=== PATIENT | female | born 1985 | race Caucasian/White ===

== ENCOUNTER 2020-07-11 14:46 | Emergency (ER) | payer OTHER, SELFPAY ==
[2020-07-11 15:02] VITALS: BP 149/85; PULSE 102; RESP 20; TEMP 37; O2SAT 100
--- NOTE | 2020-07-11 15:12 | ED.URI ---
HPI - URI/Sore Throat General Chief Complaint: Upper Respiratory Infection Stated Complaint: upper respiratory infection Time Seen by Provider: 07/11/20 14:53 Source: patient Mode of arrival: ambulatory Limitations: no limitations History of Present Illness HPI Narrative: 34-year-old female presents to [facility] with complaints of sinus congestion, runny nose, bilateral ear pressure, scratchy throat, chills, decreased appetite and fatigue for the past 2 to 3 days. Patient reports that her son recently had similar symptoms and tested negative for Covid 2 days ago. Patient has been taking [id number] DayQuil with minimal relief. Patient denies fever, chills, shortness of breath, wheezing, nausea, vomiting or diarrhea. Patient is a non-smoker. Patient denies recent travel. MD elicited complaint: cough, rhinorrhea, nasal congestion and sinus pain Onset (ago): day(s) (3) Able to tolerate fluids by mouth: Yes Exacerbating factors: nothing Relieving factors: nothing Context: sick contacts (son) Treatments prior to arrival: cold medicine Related Data Home Medications Medication Instructions Recorded Confirmed norethindrone-e.estradiol-iron 1 tablet DAILY 07/11/20 07/11/20 [Aurovela Fe 1-20 (28)] Allergies Allergy/AdvReac Type Severity Reaction Status Date / Time No Known Allergies Allergy Verified 07/11/20 15:08 Review of Systems Constitutional: Constitutional: Denies chills, Reports fatigue and Denies fever(s) ENT: Denies dysphagia, Denies dizziness, Reports nasal congestion and Reports sore throat Respiratory: Respiratory: Denies chest congestion, Reports cough, Denies dyspnea and Denies wheezing Gastrointestinal: Gastrointestinal: Denies abdominal pain, Denies constipation, Denies diarrhea and Denies vomiting Integumentary/Breasts: Skin/Breast: Denies rash Neurologic: Denies vertigo, Denies dizziness, Denies syncope and Denies focal weakness PMFSH Social History Social History (Updated 07/11/20 @ 15:14 by Leticia Sosa APRN) Smoking status: Never smoker Gender identity (if verbalized by the patient): Female Comments At time of signature, I agree with nursing past medical, surgical, social and family history. There is no relevant family history pertinent to the presenting complaint. Exam Const: General: healthy appearing and no acute distress Orientation/consciousness: patient oriented x3 HENMT: Ears: external ears normal and TM's normal bilaterally Face and sinus: normal facial exam and sinus tenderness (mild) frontal Mouth: Yes moist mucous membranes Throat: posterior oropharynx normal and uvula midline Other: mild nasal congestion noted. Neck: Neck: normal visual inspection and no lymphadenopathy Resp: Effort & Inspection: normal respiratory effort Auscultation: clear to auscultation bilaterally Cardio: Rate: regular rate Rhythm: regular rhythm and regular rhythm Skin: General skin exam: normal color Rashes: no rashes Wounds: no wounds Neuro: General: patient oriented x3, moves all extremities and no meningeal signs Psych: Appearance: grossly normal Mental Status: mental status grossly normal Affect: normal affect Attitude: cooperative Thought content: Yes Normal thought content present Course Vital Signs Vital signs: Vital Signs Temperature 37.0 C 07/11/20 15:02 Pulse Rate 102 H 07/11/20 15:02 Respiratory Rate 07/11/20 15:02 Blood Pressure 149/85 H 07/11/20 15:02 Pulse Oximetry 100 07/11/20 15:02 Temperature 37.0 C 07/11/20 15:02 Pulse Rate 102 H 07/11/20 15:02 Respiratory Rate 07/11/20 15:02 Blood Pressure 149/85 H 07/11/20 15:02 Pulse Oximetry 100 07/11/20 15:02 MDM - URI/Sore Throat MDM Narrative Medical decision making narrative: Patient agrees take medications as prescribed. Patient agrees to Covid test. Patient understands that [facility] will call her for an appointment date and time for Covid test sheila
== END 2020-07-11 15:25 | disposition home or self-care (01) ==
PROVIDERS: Emergency Provider Nurse Practitioner Family
DX: J06.9 Acute upper respiratory infection, unspecified (principal); Z20.828 Contact with and (suspected) exposure to other viral communicable diseases
CPT/HCPCS: 87081; 87880; 99203; G0463

== ENCOUNTER 2020-07-13 06:50 | Outpatient (NON) | payer OTHER, SELFPAY ==
[2020-07-14 01:03] LABS: SARS-CoV-2 RNA PCR Negative
== END 2020-07-13 06:51 ==
LOC: ANHCOVIDDT 06:50
PROVIDERS: Visit Provider Nurse Practitioner Family
DX: Z20.828 Contact with and (suspected) exposure to other viral communicable diseases (principal); R09.81 Nasal congestion; R05 Cough; J02.9 Acute pharyngitis, unspecified
CPT/HCPCS: 87635; C9803; U0003

== ENCOUNTER 2020-07-14 14:04 | Emergency (ER) | payer OTHER, SELFPAY ==
[2020-07-14 14:14] VITALS: BP 132/85; PULSE 71; RESP 20; TEMP 36.8; O2SAT 100
--- NOTE | 2020-07-14 14:25 | ED.URI ---
HPI - URI/Sore Throat General Chief Complaint: Upper Respiratory Infection Stated Complaint: upper respiratory infection Time Seen by Provider: 07/14/20 14:25 Source: patient Mode of arrival: ambulatory Limitations: no limitations History of Present Illness HPI Narrative: 34 year old female who presents to [facility] care with complaints of having sinus drainage,sore throat, pressure and pain to face and forehead, ear pressure and popping, fevers, chills with no energy since Thursday. Patient was seen in the clinic on the 11 of July and strep test was negative, has been taking Medrol dose pack Claritin and DayQuil for her symptoms with no improvement noted. Patient also had COVID testing which was negative. Patient states that she had 12 hours of freezing and sweating with no energy, and nausea on Thursday night but she didn't check her temperature then, had been having fevers up to 100.5F on Thursday and Thursday. MD elicited complaint: fever, sore throat, rhinorrhea, nasal congestion and sinus pain Pertinent past history: seasonal allergies Onset (ago): day(s) (7 days) Consistency: progressively worsening Severity: moderate Pain scale (0-10): 5 Description of mucous: clear and yellow Able to tolerate fluids by mouth: Yes Exacerbating factors: exertion and changing head position Relieving factors: nothing Associated symptoms: fever, chills and rhinorrhea Related Data Home Medications Medication Instructions Recorded Confirmed norethindrone-e.estradiol-iron 1 tablet DAILY 07/11/20 07/14/20 [Aurovela Fe 1-20 (28)] Allergies Allergy/AdvReac Type Severity Reaction Status Date / Time No Known Allergies Allergy Verified 07/11/20 15:08 Review of Systems Review of Systems: Narrative: CONSTITUTIONAL: Intermittent fever, chills, or sweats. EYES: Denies visual changes, redness, or discharge. ENT: Positive rhinorrhea, nasal congestion,sinus pressure. sore throat, and otalgia. CARDIOVASCULAR: Denies chest pain, palpitations, or edema. RESPIRATORY: Denies acute cough or dyspnea. GASTROINTESTINAL: Denies abdominal pain, one episode of nausea, no vomiting, or diarrhea. GENITOURINARY: Denies dysuria or hematuria. SKIN: Denies rash or itching. MUSCULOSKELETAL: Denies back pain, joint pain, or myalgia. NEUROLOGIC: positive headache and facial pressure denies numbness, or weakness. PSYCHIATRIC: Denies anxiety or depression. All systems reviewed & are unremarkable except as noted in HPI and below PMFSH Social History Social History (Updated 07/14/20 @ 15:20 by Vonda Bradshaw NP) Smoking status: Never smoker Alcohol intake: current Alcohol use details: rare social Substance use: never Living arrangements: with family Gender identity (if verbalized by the patient): Female Comments At time of signature, agree with nursing past medical, surgical, social history. There is no relevant family history pertinent to the presenting complaint Exam Narrative: Exam Narrative: GENERAL:Ill-appearing, well-nourished, and in no acute distress. HEAD: Normocephalic, atraumatic. EYES: PERRLA and EOMI. ENT: Nares with red turbinates, clear to light yellow rhinorrhea no epistaxis. Mucous membranes moist.TM's normal with dull light reflex, throat red with no lesions or exudates, no tonsil enlargement NECK: Supple.mild bilateral lymphadenopathy CHEST: Clear to auscultation. No respiratory distress.SAO2 100% on room air HEART: Regular rate and rhythm. No murmur heard. Normal peripheral pulses. ABDOMEN: Soft, nontender, nondistended, normal active bowel sounds. EXTREMITIES: Normal range of motion. No edema. SKIN: Warm, dry, no rash. NEURO: No focal deficits. Alert and oriented x3. headache discomfort with general fatigue. Course Vital Signs Vital signs: Vital Signs Temperature 36.8 C 07/14/20 14:14 Pulse Rate 71 07/14/20 14:14 Respiratory Rate 20 07/14/20 14:14 Blood Pressure 132/85 07/14/20 14:14 Pulse Oximetry 100
== END 2020-07-14 14:48 | disposition home or self-care (01) ==
PROVIDERS: Emergency Provider Registered Nurse
DX: J01.90 Acute sinusitis, unspecified (principal)
CPT/HCPCS: 99213; G0463

== ENCOUNTER 2021-05-16 11:06 | Emergency (ER) | payer OTHER, SELFPAY ==
--- NOTE | 2021-05-16 11:14 | ED.URI ---
HPI - URI/Sore Throat General Chief Complaint: Upper Respiratory Infection Stated Complaint: Congestion,Cough, Runny Nose Time Seen by Provider: 05/16/21 11:15 Source: patient Mode of arrival: ambulatory Limitations: no limitations History of Present Illness HPI Narrative: 35-year-old female presents to the [facility] with complaints of nasal congestion, sinus pressure, ear pain bilaterally, cough, runny nose and watery eyes. Symptoms started approximately 9 days ago when she received her Covid vaccine. states that on Thursday she had subjective fever. Denies any medical or surgical history. Has been taking DayQuil and NyQuil. Reports son was sick had a negative Covid test on Thursday, seen in the ER, diagnosed with a bilateral ear infection MD elicited complaint: cough, rhinorrhea, nasal congestion and sinus pain Pertinent past history: sinusitis Related Data Home Medications Medication Instructions Recorded Confirmed norethindrone-e.estradiol-iron 1 tablet DAILY 07/11/20 05/16/21 [Aurovela Fe 1-20 (28)] Allergies Allergy/AdvReac Type Severity Reaction Status Date / Time No Known Allergies Allergy Verified 05/16/21 11:13 Review of Systems Review of Systems: All systems reviewed & are unremarkable except as noted in HPI and below Constitutional: Constitutional: Reports as per HPI and Reports fever(s) (Thursday, 6 days ago) Eyes: Eyes: Reports no additional eye complaints, Denies change in vision and Denies photophobia ENT: Reports as per HPI, Denies vertigo, Denies dizziness and Reports nasal congestion Comments: Bilateral ear pressure, pain. Rhinorrhea Cardiovascular: Cardiovascular: Reports no additional cardiovascular complaints and Denies chest pain Respiratory: Respiratory: Reports as per HPI, Reports cough, Denies dyspnea and Denies wheezing Gastrointestinal: Gastrointestinal: Reports no additional gastrointestinal complaints, Denies abdominal pain, Denies nausea and Denies vomiting Genitourinary: Genitourinary: Reports no additional female genitourinary complaints Musculoskeletal: Musculoskeletal: Reports no additional musculoskeletal complaints Integumentary/Breasts: Skin/Breast: Reports system reviewed and no additional complaints, except as docu Neurologic: Reports system reviewed and no additional complaints, except as documented Psychiatric: Psychiatric: Reports no additional psychiatric complaints Allergic/Immunologic: Allergic/Immunologic: Reports no additional allergic/immunologic complaints PMFSH Past Medical History Medical History (Updated 09/16/21 @ 12:44 by Mora Aguiar) No significant medical problems Surgical History Surgical History (Updated 05/16/21 @ 12:44 by Mora Aguiar) No significant past surgical history Social History Social History (Updated 05/16/21 @ 12:44 by Mora Aguiar) Smoking status: Never smoker Alcohol intake: current Alcohol use details: rare social Substance use: never Living arrangements: with family Gender identity (if verbalized by the patient): Female Comments At the time of my signature, I reviewed and agree with the nursing past medical, surgical, social, and family history. There is no relevant family history pertinent to the patient complaint. Exam Const: General: healthy appearing, no acute distress and alert Nutritional Appearance: well nourished Orientation/consciousness: patient oriented x3 Limitations: no limitations HENMT: Head: normal to inspection and atraumatic Ears: external ears normal and EAC's normal General nose exam: Normal external nose present, Abnormal mucous membranes and turbinates present boggy bilateral and erythematous bilateral and Nasal discharge present clear Face and sinus: normal facial exam, face symmetric, no ecchymosis and sinus tenderness frontal and maxillary Mouth: Yes Normal oral and palatal mucosa present Throat: tonsils normal, uvula midline, postnasal drainage and no uvular edema
[2021-05-16 11:15] VITALS: BP 135/92; PULSE 71; RESP 18; TEMP 36.6; O2SAT 100
== END 2021-05-16 11:37 | disposition home or self-care (01) ==
PROVIDERS: Emergency Provider Nurse Practitioner
DX: J01.41 Acute recurrent pansinusitis (principal)
CPT/HCPCS: 99213; G0463

== ENCOUNTER 2023-07-24 13:07 | Emergency (ER) | payer OTHER, SELFPAY ==
--- NOTE | 2023-07-24 13:17 | ED.URI ---
HPI - URI/Sore Throat General Chief Complaint: Upper Respiratory Infection Stated Complaint: Bilateral Ear Irritation,Cough,Fatigue,Congestion Source: patient and RN notes reviewed History of Present Illness HPI Narrative: 37 yo F presents to urgent care with complaints of congestion, cough, runny nose, and right ear pain x 1 week. Pt states she had these symptoms, along with her son, 1 month ago and they eventually improved but never completely went away. Pt states her symptoms worsened 1 week ago. Pt reports associated chest tightness and some SOB. States she had a fever on Thursday. Denies any N/V/D, chest pain, or sore throat. Pt has been taking OTC cold medications with moderate relief. Related Data Home Medications Medication Instructions Recorded Confirmed norethindrone 1 mg-ethinyl 1 tablet DAILY 07/11/20 07/24/23 estradiol 20 mcg (21)-iron 75 mg (7) tablet (Aurovela Fe 1-20 (28)) Allergies Allergy/AdvReac Type Severity Reaction Status Date / Time No Known Allergies Allergy Verified 07/24/23 13:45 Review of Systems Review of Systems: Pertinent positives and pertinent negatives per HPI. [facility] Past Medical History Medical History (Updated 07/24/23 @ 13:50 by Natasha Garces APRN) No significant medical problems Surgical History Surgical History (Updated 05/16/21 @ 12:44 by Mora Aguiar APRN) No significant past surgical history Social History Social History (Updated 05/16/21 @ 12:44 by Mora Aguiar APRN) Smoking status: Never smoker Alcohol intake: current Alcohol use details: rare social Substance use: never Living arrangements: with family Gender identity (if verbalized by the patient): Female Comments At the time of my signature, I reviewed and agree with the nursing past medical, surgical, social, and family history. There is no relevant family history pertinent to the patient complaint. Exam Narrative: GENERAL: This is a well-nourished, well-developed patient, in no apparent distress. HEAD: normocephalic, atraumatic. EYES: Sclera clear/white. Vision is grossly intact. EARS: External ears normal, auditory canals clear and without drainage, TMs normal without perforation. Hearing grossly intact. NOSE: External nose normal with no obvious nasal discharge. + congestion THROAT: Mucous membranes moist, posterior pharynx clear. MOUTH: dry, cracked, lips NECK: Neck supple, non-tender without lymphadenopathy, masses or thyromegaly. CARDIOVASCULAR: Regular rate and rhythm without murmurs, gallops, or rubs. RESPIRATORY: Clear to auscultation. Breath sounds equal bilaterally. No wheezes, rales, or rhonchi. GASTROINTESTINAL: Abdomen soft, non-tender, nondistended. Bowel sounds are active. No hepato-splenomegaly, or palpable masses. No guarding. SKIN: warm, intact with no suspicious lesions or rash, good texture and turgor. NEURO: awake, alert, and oriented to person, place and time. There were no obvious focal neurologic abnormalities. Course Course Level of Care: Express Care Visit Vital Signs Vital signs: Vital Signs Temperature 97.1 F L 07/24/23 13:25 Pulse Rate 83 07/24/23 13:25 Respiratory Rate 18 07/24/23 13:25 Blood Pressure 116/81 07/24/23 13:25 Pulse Oximetry 100 07/24/23 13:25 Oxygen Delivery Room Air 07/24/23 13:25 Temperature 97.1 F L 07/24/23 13:25 Pulse Rate 83 07/24/23 13:25 Respiratory Rate 18 07/24/23 13:25 Blood Pressure 116/81 07/24/23 13:25 Pulse Oximetry 100 07/24/23 13:25 Oxygen Delivery Room Air 07/24/23 13:25 reviewed MDM - URI/Sore Throat MDM Narrative Medical decision making narrative: Go to the ER for any new or worsening symptoms. Avoid smoking/second-hand smoke. Continue to take Tylenol or Motrin for pain. Increase your Vitamin C intake. Use a humidifier or vaporizer at night. Take a probiotic daily while taking the antibiotic Take Medications as prescribed. Marina
[2023-07-24 13:25] VITALS: BP 116/81; PULSE 83; RESP 18; TEMP 36.2; O2SAT 100
== END 2023-07-24 14:06 | disposition home or self-care (01) ==
PROVIDERS: Emergency Provider Nurse Practitioner Family
DX: J32.9 Chronic sinusitis, unspecified (principal)
CPT/HCPCS: 99213; G0463

== ENCOUNTER 2023-11-11 08:01 | Emergency (ER) | payer OTHER, SELFPAY ==
--- NOTE | ~2023-11-11 | XR_ITS ---
EXAMINATION: XR chest 2V DATE: 11/11/2023 08:36 INDICATION: 4 days of cough and congestion TECHNIQUE: PA and lateral views of the chest were obtained. COMPARISON: None FINDINGS: The lungs are clear with no focal airspace opacities, pulmonary edema, pleural effusion or pneumothor ax. The cardiomediastinal silhouette is normal. Visualized bones and soft tissues are unremarkable. IMPRESSION: 1. Normal chest radiograph. Reviewed, dictated and finalized at location B. IMPRESSION: 1. Normal chest radiograph.
[2023-11-11 08:18] VITALS: BP 133/80; PULSE 76; RESP 18; TEMP 36.9; O2SAT 100
--- NOTE | 2023-11-11 08:22 | ED.URI ---
HPI - URI/Sore Throat General Chief Complaint: Upper Respiratory Infection Stated Complaint: congestion Time Seen by Provider: 11/11/23 08:22 Source: patient Mode of arrival: ambulatory Limitations: no limitations History of Present Illness HPI Narrative: 38 y/o female presented for c/o cough and chest congestion for 4 days. States symptoms worsened last night, and she felt it was hard to breathe at night and could not sleep. Cough is harsh but not productive, and endorses wheezing at times. Denies nasal congestion, n/v/d/f/c. Son was seen last week for similar symptoms and tested negative for virals and strep. Related Data Home Medications Medication Instructions Recorded Confirmed norethindrone 1 mg-ethinyl 1 tablet DAILY 07/11/20 11/11/23 estradiol 20 mcg (21)-iron 75 mg (7) tablet (Aurovela Fe 1-20 (28)) Allergies Allergy/AdvReac Type Severity Reaction Status Date / Time No Known Allergies Allergy Verified 11/11/23 08:12 Review of Systems Review of Systems: CONSTITUTIONAL: Denies body aches, fever, chills, or sweats. EYES: Denies visual changes, redness, or discharge. ENT: Denies rhinorrhea, congestion, sore throat, or otalgia. CARDIOVASCULAR: Denies chest pain, palpitations, or edema. RESPIRATORY: Reports cough, sob, wheezing. GASTROINTESTINAL: Denies abdominal pain, nausea, vomiting, or diarrhea. SKIN: Denies rash, itching, or wounds. MUSCULOSKELETAL: Denies back pain, joint pain, or myalgia. NEUROLOGIC: Denies headache, numbness, tingling, or weakness. PSYCH: Denies depression or anxiety. All systems reviewed & are unremarkable except as noted in HPI and below [facility] Past Medical History Medical History No significant medical problems Surgical History Surgical History No significant past surgical history Social History Social History Smoking status: Never smoker Alcohol intake: current Alcohol use details: rare social Substance use: never Living arrangements: with family Gender identity (if verbalized by the patient): Female Comments At time of signature, I have reviewed and agree with nursing past medical, surgical, social and family history unless otherwise noted. Please see nursing chart for further information. There is no relevant family history pertinent to the presenting complaint Exam Narrative: GENERAL: mildly ill-appearing, in no acute distress. EYES: EOMI. No redness or drainage. Conjunctivae normal. ENT: Mucous membranes pink and moist. No rhinorrhea. Hoarse voice. TMs normal bilaterally. Throat normal. Uvula midline. NECK: Normal AROM. Supple. CHEST: No respiratory distress. Coarse sounds to bases that clear with cough. HEART: Regular rate and rhythm. No murmur appreciated. ABDOMEN: Soft, nontender, nondistended, normal active bowel sounds. SKIN: Warm, dry, no rash. Capillary refill normal. Normal skin turgor. NEURO: Alert and oriented x3. Gait steady. Course Course Emergency Course: Patient is aware of diagnosis, understands and agrees to treatment plan. Anticipatory guidance given. Patient agrees to follow-up as directed and is aware of reasons to seek care at the emergency department. Portions of this record may have been created with voice recognition software Level of Care: Express Care Visit Vital Signs Vital signs: Vital Signs Temperature 98.4 F 11/11/23 08:18 Pulse Rate 76 11/11/23 08:18 Respiratory Rate 18 11/11/23 08:18 Blood Pressure 133/80 11/11/23 08:18 Pulse Oximetry 100 11/11/23 08:18 Oxygen Delivery Room Air 11/11/23 08:18 Temperature 98.4 F 11/11/23 08:18 Pulse Rate 76 11/11/23 08:18 Respiratory Rate 18 11/11/23 08:18 Blood Pressure 133/80 11/11/23 08:18 Pulse Oximetry 100 11/11/23 08:18 Oxygen Delivery Gissell
== END 2023-11-11 08:55 | disposition home or self-care (01) ==
PROVIDERS: Emergency Provider Nurse Practitioner Family
DX: J40 Bronchitis, not specified as acute or chronic (principal)
CPT/HCPCS: 71046; 99213; G0463